=== PATIENT | male | born 1970 | race Caucasian/White ===

== ENCOUNTER 2025-06-19 14:11 | Inpatient (IN) | payer OTHER ==
[~2025-06-19] VITALS: Ht 184.2 cm; Wt 71.2 kg
[2025-06-19 14:13] VITALS: O2SAT 99
[2025-06-19 15:32] LABS: BG DEOXYHEMOGLOBIN 1.9 % (0.0-5.0)
[2025-06-19 15:36] LABS: BASOPHILS % 0.4 % (0.0-2.0); EOSINOPHILS % 1.6 % (0.0-5.0); HEMATOCRIT. 43.3 % (42.0-52.0); HEMOGLOBIN. 14.1 g/dL (14.0-18.0); LYMPHOCYTES % 21.9 % (20.0-50.0); MEAN PLATELET VOLUME 8.8 fl (7.4-10.4); MONOCYTES % 5.5 % (2.0-8.0); NEUTROPHILS % 70.6 % (40.0-76.0); PLATELET 174 x1000/uL (130-400); RED BLOOD CELL COUNT 4.57 mill/uL (4.7-6.1); RED CELL DISTRIBUTION WIDTH 14.7 % (11.6-14.6)
[2025-06-19 15:50] LABS: CREATININE 2.2 mg/dL (0.6-1.3); TROPONIN I HIGH SENSITIVITY 7 ng/L (3.0-53); UREA NITROGEN BLOOD 28 mg/dL (9-23)
[2025-06-19 15:51] LABS: ASPARTATE AMINOTRANSFERASE 160 IU/L (<34)
[2025-06-19 15:52] LABS: BILIRUBIN DIRECT 3.5 mg/dL (<=3.0); BILIRUBIN TOTAL 4.5 mg/dL (0.1-1.0); PROTEIN TOTAL 6.9 g/dL (6.0-8.3)
[2025-06-19] MEDS: SODIUM CHLORIDE 0.9% 1,000 ML IV ONE ×2 (15:58)
[2025-06-19] MEDS: KETOROLAC 15MG/ML VIAL IV ONE (15:59)
[2025-06-19] MEDS: POTASSIUM CHLORIDE 20MEQ/PACKET PO ONE (16:53)
[2025-06-19] MEDS ORDERED: ONDANSETRON HCL 4MG/2ML INJ IV PRN (17:30)
[2025-06-19] MEDS ORDERED: DOCUSATE SODIUM 100MG CAPSULE PO PRN (17:30)
[2025-06-19] MEDS ORDERED: CLONIDINE 0.1MG TABLET PO PRN (17:30)
[2025-06-19] MEDS ORDERED: ACETAMINOPHEN 325MG TABLET PO PRN (17:30)
[2025-06-19] MEDS ORDERED: ZOLPIDEM TARTRATE 5MG TABLET PO PRN (17:30)
[2025-06-19] MEDS ORDERED: GUAIFENESIN 200MG/10ML SUGAR FREE UDC PO PRN (17:30)
[2025-06-19] MEDS ORDERED: IPRATROPIUM/ALBUTEROL 0.5-3(2.5)MG/3ML NEB HHN PRN (17:30)
[2025-06-19] MEDS ORDERED: DEXTROSE 50% WATER 50ML SYRINGE IV PRN (17:30)
[2025-06-19 18:04] LABS: CLARITY URINE CLEAR (CLEAR); COLOR URINE YELLOW (YELLOW); GLUCOSE URINE 3+ (NEGATIVE); KETONES URINE NEGATIVE (NEGATIVE); LEUKOCYTE ESTERASE URINE NEGATIVE (NEGATIVE); NITRITE URINE NEGATIVE (NEGATIVE); OCCULT BLOOD URINE NEGATIVE (NEGATIVE); PH URINE 5.5 (4.5-8.0); PROTEIN URINE NEGATIVE (NEGATIVE); SPECIFIC GRAVITY URINE 1.017 (1.005-1.030); UROBILINOGEN URINE 0.2 E.U./dL (0.2-1.0)
[2025-06-19 18:14] LABS: *AMPHETAMINES SCREEN URINE NEGATIVE (NEGATIVE); *BARBITURATES SCREEN URINE NEGATIVE (NEGATIVE); *BENZODIAZEPINES SCREEN URINE NEGATIVE (NEGATIVE); *COCAINE SCREEN URINE NEGATIVE (NEGATIVE); CANNABINOID URINE SCREEN NEGATIVE (NEGATIVE); ECSTASY MDMA SCREEN URINE NEGATIVE (NEGATIVE); METHADONE URINE SCREEN NEGATIVE (NEGATIVE); OPIATES URINE SCREEN NEGATIVE (NEGATIVE); PHENCYCLIDINE URINE SCREEN NEGATIVE (NEGATIVE)
[2025-06-19 18:28] LABS: BACTERIA URINE NONE SEEN; RBC URINE 0-2 /hpf (0-2); SQUAMOUS EPITHELIAL CELL URINE RARE /lpf (RARE/1+); WBC URINE 0-2 /hpf (0-2)
[2025-06-19 19:43] VITALS: BP 152/83; PULSE 73; RESP 20; TEMP 36.6404
[2025-06-19 20:00] VITALS: BP 152/83; PULSE 73; RESP 20; TEMP 36.6; O2SAT 100
[2025-06-19] MEDS ORDERED: GABA-1180 MT (20:16)
[2025-06-19] MEDS ORDERED: EMPA25TA MT (20:16)
[2025-06-19] MEDS ORDERED: URSO300C4 PO (20:16)
[2025-06-19] MEDS ORDERED: INSU100I28 SQ (20:16)
[2025-06-19] MEDS ORDERED: CELL2 PO (20:16)
[2025-06-19] MEDS ORDERED: INSNOV SUBCUT (20:16)
[2025-06-19] MEDS ORDERED: SODI650T PO (20:16)
[2025-06-19] MEDS ORDERED: TACR1CAP PO ×2 (20:16)
[2025-06-19] MEDS ORDERED: PRED10TA MT (20:16)
[2025-06-19] MEDS: INSULIN LISPRO 100 UNITS/ML SUBCUT SCH ×2 (21:00→21:29)
[2025-06-19] MEDS: BLOOD SUGAR DIAGNOSTIC STRIP TEST SCH (21:14)
[2025-06-19] MEDS: TACROLIMUS 0.5 MG CAPSULE PO SCH (21:26)
[2025-06-19] MEDS: MYCOPHENOLATE MOFETIL 250MG CAPSULE PO SCH (21:26)
[2025-06-19] MEDS: FAMOTIDINE 20MG TABLET PO SCH (21:26)
[2025-06-19] MEDS: INSULIN GLARGINE 100 UNITS/ML SUBCUT SCH (21:27)
[2025-06-19] MEDS: ENOXAPARIN 40MG/0.4ML SYR SUBCUT SCH (21:31)
[2025-06-19 22:19] LABS: INR 1.0
[2025-06-19 22:36] LABS: CREATININE 2.0 mg/dL (0.6-1.3); UREA NITROGEN BLOOD 23 mg/dL (9-23)
[2025-06-19 22:37] LABS: CREATINE KINASE MB FRACTION 2.6 ng/mL (0.5-3.6); TROPONIN I HIGH SENSITIVITY 9 ng/L (3.0-53)
[2025-06-19 22:38] LABS: PHOSPHORUS 3.9 mg/dL (2.5-4.9)
[2025-06-20] VITALS: BP 127/76; PULSE 69; RESP 20; TEMP 36.6; O2SAT 100
[2025-06-20 04:00] VITALS: BP 124/69; PULSE 70; RESP 20; TEMP 36.6; O2SAT 100
[2025-06-20 08:00] VITALS: BP 144/79; PULSE 70; RESP 20; TEMP 36.5; O2SAT 100
[2025-06-20] MEDS: SODIUM CHLORIDE 0.9% 1,000 ML IV SCH (09:23)
[2025-06-20] MEDS: PREDNISONE 10MG TABLET PO SCH (09:23)
[2025-06-20] MEDS: TACROLIMUS 1MG CAPSULE PO SCH (09:23)
[2025-06-20 11:09] LABS: BASOPHILS % 0.7 % (0.0-2.0); EOSINOPHILS % 5.7 % (0.0-5.0); HEMATOCRIT. 39.7 % (42.0-52.0); HEMOGLOBIN. 13.0 g/dL (14.0-18.0); LYMPHOCYTES % 35.3 % (20.0-50.0); MEAN PLATELET VOLUME 8.7 fl (7.4-10.4); MONOCYTES % 5.0 % (2.0-8.0); NEUTROPHILS % 53.3 % (40.0-76.0); PLATELET 143 x1000/uL (130-400); RED BLOOD CELL COUNT 4.23 mill/uL (4.7-6.1); RED CELL DISTRIBUTION WIDTH 15.0 % (11.6-14.6)
[2025-06-20 11:19] LABS: CREATINE KINASE MB FRACTION 2.6 ng/mL (0.5-3.6); TROPONIN I HIGH SENSITIVITY 8.0 ng/L (3.0-53)
[2025-06-20 11:20] LABS: CREATININE 2.0 mg/dL (0.6-1.3); TRIGLYCERIDE 69 mg/dL (0-150); UREA NITROGEN BLOOD 24 mg/dL (9-23)
[2025-06-20 11:21] LABS: LDL CHOLESTEROL 105 mg/dL (5-100)
[2025-06-20 11:22] LABS: ASPARTATE AMINOTRANSFERASE 197 IU/L (<34); BILIRUBIN DIRECT 2.6 mg/dL (<=3.0); PHOSPHORUS 2.9 mg/dL (2.5-4.9)
[2025-06-20 11:23] LABS: BILIRUBIN TOTAL 3.2 mg/dL (0.1-1.0); PROTEIN TOTAL 5.6 g/dL (6.0-8.3); T4 FREE 1.05 ng/dL (0.89-1.76)
[2025-06-20 12:00] VITALS: BP 122/76; PULSE 70; RESP 20; TEMP 36.3; O2SAT 99
[2025-06-20 16:00] VITALS: BP 123/76; PULSE 67; RESP 20; TEMP 36.4; O2SAT 100
[2025-06-20 20:00] VITALS: BP 124/71; PULSE 72; RESP 18; TEMP 36.6; O2SAT 100
[2025-06-20] MEDS: CYCLOBENZAPRINE 10MG TABLET PO SCH (21:46)
[2025-06-20 21:58] LABS: CREATININE 2.0 mg/dL (0.6-1.3)
[2025-06-20 21:59] LABS: UREA NITROGEN BLOOD 19.0 mg/dL (9-23)
[2025-06-21] VITALS: BP 144/75; PULSE 75; RESP 20; TEMP 36.6; O2SAT 100
[2025-06-21 04:00] VITALS: BP 141/74; PULSE 71; RESP 20; TEMP 36.7; O2SAT 100
[2025-06-21 07:53] VITALS: BP 141/83; PULSE 62; RESP 18; TEMP 36.5; O2SAT 100
[2025-06-21 11:31] VITALS: BP 125/78; PULSE 68; RESP 16; TEMP 36.7; O2SAT 99
[2025-06-21] MEDS: GABAPENTIN 300MG CAPSULE PO SCH (13:50)
[2025-06-21 14:42] VITALS: BP 141/83; PULSE 78; RESP 18; TEMP 97.7
[2025-06-21] MEDS ORDERED: URSODIOL 300MG CAPSULE PO SCH (21:00)
== END 2025-06-21 15:57 | disposition home or self-care (01) | DRG 638 ==
LOC: ER 14:31 → 7WST 16:25 → EDBEDREQTM 16:38 → EDBEDREQ 16:38 → ENRESERV 17:36 → 7WST 19:39
PROVIDERS: ADMIT Internal Medicine; ATTEND Internal Medicine
DX: E11.10 Type 2 diabetes mellitus with ketoacidosis without coma (principal); K86.1 Other chronic pancreatitis; N17.9 Acute kidney failure, unspecified; Z94.4 Liver transplant status; E87.6 Hypokalemia; E86.0 Dehydration; I12.9 Hypertensive chronic kidney disease with stage 1 through stage 4 chronic kidney disease, or unspecified chronic kidney disease; K70.30 Alcoholic cirrhosis of liver without ascites; N18.32 Chronic kidney disease, stage 3b; D72.829 Elevated white blood cell count, unspecified; E11.22 Type 2 diabetes mellitus with diabetic chronic kidney disease; E80.6 Other disorders of bilirubin metabolism; E78.5 Hyperlipidemia, unspecified; Z79.624 Long term (current) use of inhibitors of nucleotide synthesis; Z88.2 Allergy status to sulfonamides; Z79.4 Long term (current) use of insulin; Z88.3 Allergy status to other anti-infective agents
CPT/HCPCS: 36415; 71045; 76700; 80048; 80061; 80076; 80305; 81003; 82010; 82140; 82375; 82550; 82553; 82803; 82962; 83036; 83605; 83735; 83930; 83935; 84100; 84145; 84439; 84443; 84484; 85025; 85379; 93005; 93970; 96361; 96374; 99285; A4606; J1650; J1815; J1885; J7030; J7507; J7512; J7517